=== PATIENT | female | born 1965 | race Caucasian/White ===

== ENCOUNTER 2017-11-10 14:57 | Emergency (ER) | payer MEDICAID, SELFPAY ==
[2017-11-10 14:59] VITALS: BP 135/82; PULSE 97; RESP 18; TEMP 36.4; O2SAT 98; BMI 35.8
--- NOTE | 2017-11-10 15:42 | ED.DCSUM_ITS ---
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 She reports that she has had pain off and on at the base of her left thumbnail for quite some time. However, the pain has worsened over the past 2 weeks. She describes a throbbing pain Zeta 10 hours through 10 currently. Is worsened by bending or movement. Is relieved by nothing. She denies any constitutional symptoms. No fever, chills, nausea, or vomiting. Physical Examination: Vitals: Stable. Afebrile. General: Well-nourished and well-developed. Head: Normocephalic atraumatic. Neck: Supple, no lymphadenopathy. No JVD. Nontender. Cardiovascular: Regular rate and rhythm. No murmurs. Respiratory: No respiratory distress. Clear to auscultation bilaterally. Abdominal: Soft, nontender, nondistended, normal bowel sounds. No guarding, rebound, or peritoneal signs. Back: Nontender. Extremities: Left thumb and middle finger show mild erythema just proximal to the nail. There is inflammation. There is no appreciable fluid collection. There are thickened nails. The cuticle is gone.. Skin: Normal color, no rash. Neurologic: Alert and oriented ?3. Cranial nerves II through XII are intact. Normal strength and sensation. Psych: Normal affect. Emergency Department Course and Treatment: I had a prolonged discussion with the patient regarding this. Clinically it does not look acutely inflamed. I believe that she has chronic paronychias. I do not think that drainage would be helpful. Treatment Plan: Patient will be discharged with Kenalog cream to place to the areas. She is instructed to wear gloves at work so she is not get her hands wet or expose them to chemicals. Follow-up Dr. Valadez in 1-2 weeks if not improving. Return to the emergency department for any worsening symptoms. Disposition: To home in improved and stable condition. Impression: 1. 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 This note was generated with [employer] software. It may contain incorrect words, spelling, and punctuation that were not noted in review of the chart prior to signing ED Disposition - Plan for ED Patient: Disposition: Home or Assisted Living Chief Complaint: Cellulitis Instructions: ED Fingernail Infec Prescriptions: Triamcinolone Acetonide 1 applicatio TP BID #1 tube Referrals: Beni Valadez MD [STAFF PHYSICIAN] - 10-14 Days if not better
== END 2017-11-10 15:56 | disposition home or self-care (01) ==
PROVIDERS: Emergency Provider Emergency Medicine
DX: L03.012 Cellulitis of left finger (principal); L60.2 Onychogryphosis; Z72.0 Tobacco use
CPT/HCPCS: 99282

== ENCOUNTER 2018-05-06 21:11 | Emergency (ER) | payer MEDICAID, SELFPAY ==
[2018-05-06 21:12] VITALS: BP 131/62; PULSE 117; RESP 18; TEMP 36.7; O2SAT 97; BMI 36.6
== END 2018-05-06 22:10 | disposition left against medical advice (07) ==
LOC: ED 21:29
PROVIDERS: Emergency Provider Emergency Medicine
DX: R05 Cough (principal)

== ENCOUNTER 2018-05-10 18:50 | Emergency (ER) | payer MEDICAID, SELFPAY ==
[2018-05-10 18:52] VITALS: BP 133/97; PULSE 96; RESP 17; TEMP 36.7; O2SAT 96; BMI 36.8
[2018-05-10 21:07] VITALS: BP 153/111; PULSE 92; RESP 18; TEMP 37.1; O2SAT 97
[2018-05-10 21:09] VITALS: BP 153/111; PULSE 88; RESP 18; TEMP 36.9; O2SAT 97; O2SAT 98
--- NOTE | 2018-05-10 22:03 | ED.DCSUM_ITS ---
- ER Visit Summary Date of Service: 05/10/18 Chief Complaint: Cough and sore throat History of Present Illness: The patient is a 52 F no seen in past medical history. Patient is a 1 week of a sore throat cough of yellowish sputum. She is now developing laryngitis. Denies chest pain or shortness of breath. Physical Examination: Well-appearing middle-age female. Vital signs are stable and afebrile. She does not look septic distress. Her pulse ox is 90% on room air no hypoxia. H EENT exam posterior pharynx is unremarkable. No exudate. No trouble swallowing or breathing. No significant erythema. TMs normal. Neck nontender. No lymphadenopathy. Trachea midline. Lungs clear to auscultation bilaterally. Dry cough. Heart regular rhythm no murmur. Abdomen soft and nontender. Extremities moves all 4. Calves nontender without edema or cords. Neurologically she is awake alert with no focal motor deficits. Test Results: None Emergency Department Course and Treatment: Viral syndrome Treatment Plan: Fluids and rest. Tylenol Motrin. Warm salt water gargling. Follow-up with not improving. Disposition: Discharge Impression: Viral laryngitis and bronchitis This note was generated with [employer] dictation software. It may contain incorrect words, spelling, and punctuation that were not noted in review of the chart prior to signing ED Disposition - Plan for ED Patient: Referrals: Care Physician,No Primary [Primary Care Provider] -
--- NOTE | 2018-05-10 22:03 | ED.DEP ---
ED Disposition - Plan for ED Patient: Disposition: Home or Assisted Living Instructions: ED Pharyngitis Viral Prescriptions: Azithromycin [Zithromax Z-Teto] 250 mg PO UD #1 box Referrals: Henrry Bunch MD [STAFF PHYSICIAN] - 1 Week if not improving Additional Instructions: This is a viral illness. Should get better on its own. Plenty of fluids and rest. Tylenol and Motrin for pain. Warm salt water gargling and Chloraseptic spray for your sore throat. If in 1 week this is not improving you can get the antibiotic filled and started but most likely this would be better on its own and the antibiotic will not do a viral infection any good.
[2018-05-10 22:12] VITALS: BP 146/85; PULSE 89; RESP 18; O2SAT 97
== END 2018-05-10 22:13 | disposition home or self-care (01) ==
PROVIDERS: Emergency Provider Emergency Medicine
DX: J04.0 Acute laryngitis (principal); J20.8 Acute bronchitis due to other specified organisms; B34.9 Viral infection, unspecified; Z72.0 Tobacco use
CPT/HCPCS: 99282